=== PATIENT | female | born 1960 | race Caucasian/White ===

== ENCOUNTER 2021-01-26 12:17 | Emergency (ER) | payer BC ==
[2021-01-26] MEDS ORDERED: Morphine 2 MG/ML SYRINGE IVPUSH ONE (13:30)
[2021-01-26] MEDS ORDERED: Sodium Chloride 0.9% 1,000 ML IV ONE (13:30)
[2021-01-26] MEDS ORDERED: Ondansetron 4 MG/2 ML SDV IV ONE (13:34)
[2021-01-26 14:42] LABS: ANION GAP 17.2 mEq/L (7-13); CHLORIDE,CL 102 mmol/L (98-107); SODIUM,NA 139 mmol/L (136-145)
[2021-01-26] MEDS ORDERED: Iopamidol 612 MG/ML 100 ML Bottle IVPUSH ONE (14:54)
--- NOTE | 2021-01-26 16:35 | CR ---
EXAMINATION: Abdomen 2V AP supine/prone KUB SEX: Female AGE: 60 years CLINICAL HISTORY: 60-year-old female with hematuria, left flank pain and suggestion "(tiny 1.5 mm) possible distal left ureterolith" on CT exam today. Follow-up. INTERPRETATION: Slight asymmetric prominence collecting system on the left. Otherwise negative exam. Symmetric normal reniform size axis and configuration. *Subtle asymmetric prominence left renal pelvis and proximal left ureter but no distal left ureteral dilatation. Significance? Suggest consideration of elective retrograde urologic procedure. Symmetrically distended normal appearing opacified bladder. No mucosal wall mass. Nonspecific bowel pattern. No abdominal mass lesion. Lung bases clear. Lumbar spine, pelvis and hips unremarkable.
--- NOTE | 2021-01-26 16:37 | EDM.PDOC ---
Scribed by Socorro Kwong 01/26/21 [id number] for Tia Valiente NP ED HPI GENERAL MEDICAL PROBLEM - General Chief Complaint: Abdominal Pain Stated Complaint: LOWER PELVIC PAIN Time Seen by Provider: 01/26/21 13:19 Source of Information: Reports: Patient, RN, RN Notes Reviewed History Limitations: Reports: No Limitations - History of Present Illness INITIAL COMMENTS - FREE TEXT/NARRATIVE: Patient is a 60-year-old female who presents to ER with complaint of left pelvic/flank pain. Pain began a couple of days ago. Rates pain 8/10. She has had chills, body aches or nausea. Diarrhea today. No fever or vomiting. He has a history of kidney stones and constipation. Onset: Gradual Duration: Getting Worse Location: Reports: Abdomen Quality: Reports: Ache Severity: Moderate Improves with: Reports: None Worsens with: Reports: None Associated Symptoms: Reports: No Other Symptoms Left Flank Pain Score (Numeric/FACES): 5 - Related Data Allergies Allergy/AdvReac Type Severity Reaction Status Date / Time No Known Allergies Allergy Verified 01/26/21 12:48 Home Meds: Home Meds Progesterone,Micronized [Prometrium] 10 mg PO DAILY 01/26/21 [History] Past Medical History HEENT History: Reports: Impaired Vision Cardiovascular History: Reports: None Respiratory History: Reports: None Gastrointestinal History: Reports: Chronic Constipation Genitourinary History: Reports: Renal Calculus IT [employer]AD History: Reports: None Musculoskeletal History: Reports: None Neurological History: Reports: Migraines Psychiatric History: Reports: None Endocrine/Metabolic History: Reports: None Hematologic History: Reports: None Immunologic History: Reports: None Oncologic (Cancer) History: Reports: None Dermatologic History: Reports: None - Infectious Disease History Infectious Disease History: Reports: None - Past Surgical History Head Surgeries/Procedures: Reports: None Social & Family History - Family History Family Medical History: No Pertinent Family History - Tobacco Use Tobacco Use Status *Q: Never Tobacco User Second Hand Smoke Exposure: No - Caffeine Use Caffeine Use: Reports: Soda - Recreational Drug Use Recreational Drug Use: No ED ROS GENERAL - Review of Systems Review Of Systems: Comprehensive ROS is negative, except as noted in HPI. ED EXAM, GI/ABD - Physical Exam Exam: See Below Exam Limited By: No Limitations General Appearance: Alert, Moderate Distress Eyes: Bilateral: Normal Appearance Ears: Normal External Exam, Normal Canal, Hearing Grossly Normal, Normal TMs Nose: Normal Inspection, Normal Mucosa, No Blood Throat/Mouth: Normal Inspection, Normal Lips, Normal Teeth, Normal Gums, Normal Oropharynx, Normal Voice, No Airway Compromise Head: Atraumatic, Normocephalic Neck: Normal Inspection, Supple, Non-Tender, Full Range of Motion Respiratory/Chest: No Respiratory Distress, Lungs Clear, Normal Breath Sounds, No Accessory Muscle Use, Chest Non-Tender Cardiovascular: Normal Peripheral Pulses, Regular Rate, Rhythm, No Edema, No Gallop, No JVD, No Murmur, No Rub GI/Abdominal Exam: Tender (left lower quadrant/left flank pain. Hypoactive bowel sounds. ) (Female) Exam: Deferred Rectal (Female) Exam: Deferred Back Exam: Normal Inspection, Full Range of Motion, NT Extremities: Normal Inspection, Normal Range of Motion, Non-Tender, Normal Capillary Refill, No Pedal Edema Neurological: Alert, Oriented, CN II-XII Intact, Normal Cognition, Normal Gait, Normal Reflexes, No Motor/Sensory Deficits Psychiatric: Anxious Skin Exam: Warm, Dry, Intact, Normal Color, No Rash Lymphatic: No Adenopathy Course - Vital Signs Last Recorded V/S: Last Vital Signs Temp 99.4 F 01/26/21 14:19 Pulse 64 01/26/21 14:19 Resp 16 01/26/21 14:19 BP 99/67 01/26/21 14:19 Pulse Ox 97 01/26/21 14:19 - Orders/Labs/Meds Orders: Active Orders 24 hr Category Date Time Status CULTURE BLOOD [BC] Stat Lab 01/26/21 14:03 Received CULTURE BLOOD [BC] Stat Lab 01/26/21 14:07 Received CULTURE URINE [RM] Urgent Lab 01/26/21 12:33 Received Blood Culture x2 Reflex Set [OM.PC] Stat Oth 01/26/21 13:29 Ordered Labs: Laboratory Tests 01/26/21 01/26/21 01/26/21 Range/Units 12:33 14:03 14:03 WBC 10.0 (5.0-10.0) 10^3/uL RBC 4.32 (4.2-5.4) 10^6/uL Hgb 13.2 (12.0-16.0) g/dL Hct 38.7 (37.0-47.0) % MCV 89.6 (80-100) fL MCH 30.6 (27.0-34.0) pg MCHC 34.1 (33.0-35.0) g/dL Plt Count 206 (150-450) 10^3/uL Neut % (Auto) 78.5 H (42.2-75.2) % Lymph % (Auto) 12.8 L (20.5-50.1) % [place] % (Auto) 8.4 H (2-8) % Eos % (Auto) 0.2 L (1.0-3.0) % Baso % (Auto) 0.1 (0.0-1.0) % Sodium 139 (136-145) mmol/L Potassium 3.2 L (3.5-5.1) mmol/L Chloride 102 (98-107) mmol/L Carbon Dioxide 23 (21-32) mmol/L Anion Gap 17.2 H (7-13) mEq/L BUN 9 (7-18) mg/dL Creatinine 0.80 (0.55-1.02) mg/dL Est Cr Clr Drug Dosing 57.84 mL/min Estimated GFR (MDRD) > 60 BUN/Creatinine Ratio 11.2 (No establ ref range) Glucose 74 (70-99) mg/dL Lactic Acid (0.4-2.0) mmol/L Calcium 8.8 (8.5-10.1) mg/dL Total Bilirubin 1.1 H (0.2-1.0) mg/dL AST 22 (15-37) U/L ALT 23 (14-59) U/L Alkaline Phosphatase 85 (46-116) U/L C-Reactive Protein 0.6 (0.0-0.9) mg/dL Total Protein 7.4 (6.4-8.2) g/dL Albumin 3.9 (3.4-5.0) g/dL Globulin 3.5 Albumin/Globulin Ratio 1.1 Urine Color Yellow (YELLOW) Urine Appearance Clear (CLEAR) Urine pH 6.0 (5.0-9.0) Ur Specific [place] 1.010 (1.005-1.030) Urine Protein Negative (NEGATIVE) Urine Glucose (UA) Negative (NEGATIVE) Urine Ketones 40 H (NEGATIVE) Urine Occult Blood Large H (NEGATIVE) Urine Nitrite Negative (NEGATIVE) Urine Bilirubin Negative (NEGATIVE) Urine Urobilinogen 0.2 (0.2-1.0) mg/dL Ur Leukocyte Esterase Trace H (NEGATIVE) Urine RBC 0-5 (0-5) /HPF Urine WBC 0-5 (0-5/HPF) /HPF Ur Epithelial Cells Not seen (NOT SEEN) /HPF Urine Bacteria Rare (0-FEW/HPF) /HPF / Range/Units 14:03 WBC (5.0-10.0) 10^3/uL RBC (4.2-5.4) 10^6/uL Hgb (12.0-16.0) g/dL Hct (37.0-47.0) % MCV (80-100) fL MCH (27.0-34.0) pg MCHC (33.0-35.0) g/dL Plt Count (150-450) 10^3/uL Neut % (Auto) (42.2-75.2) % Lymph % (Auto) (20.5-50.1) % [place] % (Auto) (2-8) % Eos % (Auto) (1.0-3.0) % Baso % (Auto) (0.0-1.0) % Sodium (136-145) mmol/L Potassium (3.5-5.1) mmol/L Chloride (98-107) mmol/L Carbon Dioxide (21-32) mmol/L Anion Gap (7-13) mEq/L BUN (7-18) mg/dL Creatinine (0.55-1.02) mg/dL Est Cr Clr Drug Dosing mL/min Estimated GFR (MDRD) BUN/Creatinine Ratio (No establ ref range) Glucose (70-99) mg/dL Lactic Acid 0.7 (0.4-2.0) mmol/L Calcium (8.5-10.1) mg/dL Total Bilirubin (0.2-1.0) mg/dL AST (15-37) U/L ALT (14-59) U/L Alkaline Phosphatase (46-116) U/L C-Reactive Protein (0.0-0.9) mg/dL Total Protein (6.4-8.2) g/dL Albumin (3.4-5.0) g/dL Globulin Albumin/Globulin Ratio Urine Color (YELLOW) Urine Appearance (CLEAR) Urine pH (5.0-9.0) Ur Specific [place] (1.005-1.030) Urine Protein (NEGATIVE) Urine Glucose (UA) (NEGATIVE) Urine Ketones (NEGATIVE) Urine Occult Blood (NEGATIVE) Urine Nitrite (NEGATIVE) Urine Bilirubin (NEGATIVE) Urine Urobilinogen (0.2-1.0) mg/dL Ur Leukocyte Esterase (NEGATIVE) Urine RBC (0-5) /HPF Urine WBC (0-5/HPF) /HPF Ur Epithelial Cells (NOT SEEN) /HPF Urine Bacteria (0-FEW/HPF) /HPF Meds: Medications Discontinued Medications Generic Name Dose Route Start Last Admin Trade Name Freq PRN Reason Stop Dose Admin Sodium Chloride 1,000 mls @ 999 mls/hr 01/26/21 13:30 01/26/21 14:11 Normal Saline IV 01/26/21 14:30 999 mls/hr .BOLUS ONE Administration Iopamidol 100 ml 01/26/21 14:54 01/26/21 15:26 Iopamidol 612 Mg/Ml 100 Ml Bottle IVPUSH 01/26/21 14:55 75 ml ONETIME ONE Administration Morphine Sulfate 2 mg 01/26/21 13:30 01/26/21 14:14 Morphine 2 Mg/Ml Syringe IVPUSH 01/26/21 13:31 2 mg ONETIME ONE Administration Ondansetron HCl 4 mg 01/26/21 13:34 01/26/21 14:12 Ondansetron 4 Mg/2 Ml Sdv IV 01/26/21 13:35 4 mg ONETIME ONE Administration - Re-Assessments/Exams Free Text/Narrative Re-Assessment/Exam: 01/26/21 17:15 Labs and diagnostics discussed with patient. Patient will be discharged to follow-up with her primary care provider for possible referral for urology. 01/26/21 17:16 Patient states pain much improved as well as nausea since arrival to ER. Departure - Departure Time of Disposition: 17:16 Disposition: Home, Self-Care 01 Condition: Good Clinical Impression: Prominent renal pelvis, Left flank pain, Left lower quadrant pain Hematuria Qualifiers: Hematuria type: unspecified type Qualified Code(s): R31.9 - Hematuria, unspecified - Discharge Information *PRESCRIPTION DRUG MONITORING PROGRAM REVIEWED*: No *COPY OF PRESCRIPTION DRUG MONITORING REPORT IN PATIENT SANDRINE: No Instructions: Flank Pain, Adult, [id number], Abdominal Pain, Adult, [id number], Hematuria, Adult Forms: ED Department Discharge Additional Instructions: Rx: Zofran 4 mg orally every 6 to 8 hours as needed for nausea Rx: Percocet 5/325 1 tablet orally every 4 hours as needed for pain. Drink plenty of water Follow-up with your primary care provider for possible urology consult Return to the ER with any worsening of symptoms Sepsis Event Note (ED) - Focused Exam Vital Signs: Vital Signs Temp Pulse Resp BP BP Pulse Ox 01/26/21 14:19 99.4 F 64 16 99/67 97 01/26/21 12:34 98.1 F 77 18 115/76 98 - My Orders Last 24 Hours: My Active Orders 01/26/21 12:33 CULTURE URINE [RM] Urgent 01/26/21 13:29 Blood Culture x2 Reflex Set [OM.PC] Stat 01/26/21 14:03 CULTURE BLOOD [BC] Stat 01/26/21 14:07 CULTURE BLOOD [BC] Stat - Assessment/Plan Last 24 Hours: My Active Orders 01/26/21 12:33 CULTURE URINE [RM] Urgent 01/26/21 13:29 Blood Culture x2 Reflex Set [OM.PC] Stat 01/26/21 14:03 CULTURE BLOOD [BC] Stat 01/26/21 14:07 CULTURE BLOOD [BC] Stat I have read and agree with the documentation that has been completed regarding this visit. By signing this record, I attest that the documentation was completed in my physical presence and is an accurate record of the encounter.
--- NOTE | 2021-01-26 16:38 | CT ---
EXAMINATION: Abdomen Pelvis w wo Cont SEX: Female AGE: 60 years CLINICAL HISTORY: 60-year-old 132 pound female with left flank/left lower quadrant PAIN AND HEMATURIA. Serum WBC 10,000 with left shift in this patient who reportedly has history of "kidney stones". Scan technique: Volume acquisition of data from the abdomen and pelvis (kidneys/ureters/bladder) obtained without and during intravenous infusion 75 cc nonionic Isovue contrast at 3 cc/s via injector while patient was lying supine on the Siemens multislice scanner [place], [place]. All data archived in the PACS system for storage, reformatting axial/sagittal/coronal planes and study. No comparison exams immediately available. Interpretation: 1. Normal reniform size, axis and configuration. Smooth renal contours bilaterally. No sign of cystic or solid renal cortical mass lesion. No nephrolithiasis or caliectasis (subtle asymmetric pyelectasis, on the left. Significance?). 2. Symmetrically distended unenhanced urinary bladder unremarkable (specifically, no sign of intraluminal urinary bladder stones). Punctate arteriovascular calcifications in the common iliac arteries and tiny phleboliths in the pelvis. Note: Tiny punctate 1.5 mm calcification base of the urinary bladder, on the left, (axial #61; coronal #30; sagittal #28) that could represent a nonobstructing distal left ureterolith but phlebolith is a strong differential consideration. 3. Gallbladder, unenhanced liver, stomach, spleen, pancreas and adrenal glands unremarkable. No gallstones. No abnormal dilatation of intrahepatic biliary ducts or major pancreatic ducts. 4. Normal caliber aortoiliac vessels. Lumbar spine unremarkable. 5. No abdominal or pelvic mass lesion. No inflammatory "dirty" peritoneal fat, signs of mechanical bowel obstruction, ascites or free intraperitoneal air. Sigmoid diverticulosis. 6. Small ovarian cysts. Normal midline uterus. 7. Normal cardiac silhouette. Lung bases clear. No pericardial or pleural effusions. Delayed plain films of the abdomen confirm subtle asymmetric prominence of the left renal pelvis and proximal ureter. Elected urology consultation suggested.
== END 2021-01-26 17:36 | disposition home or self-care (01) ==
LOC: EDBD → DL.ED 12:17
DX: R10.32 Left lower quadrant pain (principal); R31.9 Hematuria, unspecified; Q63.8 Other specified congenital malformations of kidney
CPT/HCPCS: 36415; 74019; 74178; 80053; 81001; 83605; 85025; 86140; 87040; 87086; 96374; 96375; 99284; J2270; J2405; J7030; Q9967